=== PATIENT | male | born 1990 | race Caucasian/White ===

== ENCOUNTER 2017-04-24 14:19 | Emergency (ER) | payer OTHER ==
[~2017-04-24] VITALS: Ht 190.5 cm; Wt 99.8 kg
[2017-04-24] MEDS ORDERED: LIDOCAINE 1% VIAL ONE (14:50)
--- NOTE | 2017-04-24 15:23 | ER.PDOC ---
General Chief Complaint: Extremities Stated Complaint: LACERATION ON LEFT MIDDLE FINGER Time seen by MD: 15:23 Source: patient Exam Limitations: no limitations History of Present Illness Initial Comments Laceration left middle finger from a crush in a machine. Occurred: this afternoon Where: work Severity: moderate Context: crush Allergies: Coded Allergies: No Known Allergies (Unverified , 04/24/17) Home Meds No Active Prescriptions or Reported Meds Past Medical History Medical History: no pertinent history Surgical History: no surgical history Social History Smoking: less than 1 pack/day Alcohol Use: occassionally Drug Use: none Review of Systems Constitutional: no symptoms reported Respiratory: no symptoms reported Cardiovascular: no symptoms reported Gastrointestinal: no symptoms reported Skin: see HPI All Other Systems: Reviewed and Negative Physical Exam General Appearance: Alert, No Apparent Distress Hand: see diagram Wrist: nml inspection, non-tender, nml ROM 1 - Laceration with significant skin loss of 3rd middle finger Neuro: sensation nml, motor nml Tendons: tendon function nml Forearm/Elbow/Arm: uninjured above wrist Head/ENT: nml inspection, pharynx nml Neck/Back: nml inspection, non-tender Resp/CVS: no resp distress, lungs clear, heart sounds nml, reg. rate & rhythm Abdomen: non-tender, no organomegaly Laceration/Wound Repair Laceration/Wound Repair : Wound Location: Left middle finger Wound Length (cm): 2 Anesthesia type: digital block Anesthesia: 1% Lidocaine Volume Anesthetic (ccs): 10 Wound's Depth, Shape: into muscle, irregular Wound Repaired With: sutures Suture Size/Type: 4:0, ethilon Suture Style: interupted Number of Sutures: 6 Sterile Dressing Applied?: Yes Progress Progress Spoke to Dr. Campo who will see patient on 04/27/17 at 1pm. Discussed with patient that he will need to see him or other hand or Orthopedic Surgeon and he voiced understanding. Also discussed with patient that his laceration was deep with significant skin loss and healing might not be as cosmetic but he was okay with that. EKG/XRAY/CT/US XRAY Comments: No fracture of left middle finger Departure Time of Disposition: 15:56 Disposition: 01 HOME, SELF-CARE Impression: Primary Impression: Laceration Condition: Stable Referrals: PCP,UNKNOWN (PCP) PRIMARY CARE PROVIDER Additional Instructions: Clean wound daily with soap and water and apply Neosporin Keflex Remove sutures in [address] Campo Ibuprofen F/U with Dr. Campo on 04/27/17 at 1pm Scripts No Active Prescriptions or Reported Meds DAVID,JUAN Neil MD Apr 24, 2017 15:23
--- NOTE | 2017-04-24 15:27 | DIREP ---
PROCEDURE:XRAY FINGER-LT COMPARISON:None. INDICATIONS:LACERATION THIRD DIGIT TECHNIQUE:Three views of the left 3rd finger FINDINGS: BONES:Normal. JOINTS:Anatomic. SOFT TISSUES:Soft tissue swelling without radiopaque foreign body. OTHER:No additional findings. CONCLUSION:Essentially normal examination. Please see above for incidental and/or clinically insignificant findings. Dictated by: Ben Laureano M.D. on 04/24/2017 at 03:20 PM
[2017-04-24] MEDS ORDERED: ANCEF IM STA (15:59)
[2017-04-24] MEDS ORDERED: TRIPLE ANTIBIOTIC OINTMENT TP ONE (16:02)
[2017-04-24] MEDS ORDERED: ANCEF ONE (16:02)
[2017-04-24] MEDS ORDERED: WATER 20 ML ONE (16:02)
[2017-04-24 16:17] VITALS: BP 137/85
== END 2017-04-24 16:23 | disposition home or self-care (01) ==
LOC: ER 14:19
DX: S61.213A Laceration without foreign body of left middle finger without damage to nail, initial encounter (principal); F17.200 Nicotine dependence, unspecified, uncomplicated; W22.8XXA Striking against or struck by other objects, initial encounter; Y93.89 Activity, other specified; Y92.69 Other specified industrial and construction area as the place of occurrence of the external cause; Y99.0 Civilian activity done for income or pay
CPT/HCPCS: 12001; 73140; 96372; 99284; J0690; J2001; A4216